=== PATIENT | female | born 1965 | race Caucasian/White ===

== ENCOUNTER 2019-02-14 07:38 | Day surgery (SDC) | payer OTHER, SELFPAY ==
[2019-02-14] VITALS (7 sets, daily range): BP systolic 88–118; BP diastolic 44–75; PULSE 53–60; RESP 10–16; TEMP 36–36.7; O2SAT 97–100; BMI 19.9
[2019-02-14] MEDS: SODIUM CHLORIDE 0.9% 1,000 ML 200 ML IV (08:18)
[2019-02-14] MEDS: FLEETS ENEMA 1 EACH PR (08:36)
--- NOTE | 2019-02-14 08:36 | SUR.PREOP ---
Enema given as instructed.
--- NOTE | 2019-02-14 08:42 | SUR.PREOP ---
output after enema was yellow and slightly cloudy.
--- NOTE | 2019-02-14 09:02 | SUR.PREOP ---
AnneRN and Dr. Palmer aware of output after enema.
--- NOTE | 2019-02-14 09:03 | P.HP_ITS ---
History of Present Illness History of Present Illness Date Patient Seen: 02/14/19 Time Patient Seen: 09:03 Chief complaint: [id number] SCREENING COLONOSCOPY Narrative: Patient presents for colorectal screening. They have never had any previous examination for such. No personal or family history of colon cancer. On further history denies any recent gastrointestinal symptoms. No nausea, vomiting, abdominal pain, loss of appetite, unexplained weight loss, change in b owel habits, diarrhea, constipation, melena, hematochezia, or bright red blood per rectum. Patient History Family & Social History Social History: household members spouse Meds Home Medications and Allergies Home Medications Medication Instructions Recorded Confirmed Type ascorbic acid (vitamin C) [Vitamin 1,000 mg PO DAILY 02/14/19 02/14/19 History C] magnesium 400 mg PO DAILY 02/14/19 02/14/19 History multivitamin 1 tab PO DAILY 02/14/19 02/14/19 History omega 4-qiw-[id number]-fish oil [Fish Oil] 1 cap PO DAILY 02/14/19 02/14/19 History Allergies Allergy/AdvReac Type Severity Reaction Status Date / Time No Known Drug Allergies Allergy Verified 02/14/19 08:01 Review of Systems Review of Systems Narrative: A complete review of systems is negative except as noted in the HPI Exam Vital Signs (past 8 hours): - 02/14/19 08:06 Temperature 97.6 F Pulse Rate 60 Respiratory Rate 15 Blood Pressure 118/75 Pulse Oximetry 100 Oxygen Delivery Method Room Air Narrative Exam Narrative: General-no acute distress, well nourished HEENT-moist mucous membranes, no scleral icterus Neck-supple, no lymphadenopathy Chest- non labored respirations, clear to auscultation bilaterally Cardiac-regular rate no peripheral edema Abdomen-soft, nontender, non distended Extremities-warm, well perfused Neurological-alert and oriented, no focal deficits Assessment & Plan Assessment and plan (1) Screening for colon cancer: Current visit: Yes Status: Acute Assessment & Plan narrative: The patient requires colorectal screening and colonoscopy is recommended. Technical details were discussed. Risks, benefits, alternatives explained. Risks including but not limited to myocardial infarction, aspiration, bleeding, pain, missed lesion, incomplete examination, need for further radiographic studies, colonic perforation, and need for major abdominal surgery were discussed. All questions were answered to their satisfaction, and they are in agreement with this plan.
[2019-02-14] MEDS: fentaNYL 250 MCG/5 ML INJ IV (09:36)
[2019-02-14] MEDS: MIDAZOLAM 5 MG/5 ML VIAL IV (09:37)
--- NOTE | 2019-02-14 09:37 | PM.OP.ENDO ---
Operative Date/Time/Diagnoses Date of procedure: 02/14/19 Time of procedure: 09:37 Pre-op diagnosis: screening colonoscopy Post-op diagnosis: same Procedure & Clinicians Study performed: Colonoscopy Same procedure as scheduled: Yes Indications: 53-year-old female presents for routine screening colonoscopy Surgeon: Rajesh Palmer Procedure Notes SCOAP/Timeout: Performed Procedure in detail: Patient placed in left lateral decubitus position. Time out was performed. Procedural sedation was administered with Versed and Fentanyl. A rectal exam demonstrated no external hemorrhoids no internal masses. Colonoscopy scope was placed into the rectum and advanced through the colon to the cecum. The ileocecal valve was identified. The scope was then slowly withdrawn examining colon thoroughly in all directions. The colonoscopy was notable for the following 1. No masses or polyps 2. Quality of prep excellent 3. Grade 1-2 internal hemorrhoids Scope withdrawal time: 6 Sedation minutes: 22 Findings: internal hemorrhoids Specimen(s): none sent Complications: none Impression: Normal colonoscopy Post-procedure Recommendations: Colonscopy in 10 years Disposition: same day surgery
== END 2019-02-14 10:23 | disposition home or self-care (01) ==
PROVIDERS: PCP Internal Medicine; Visit Provider Surgery
PROC: 0DJD8ZZ Inspection of Lower Intestinal Tract, Via Natural or Artificial Opening Endoscopic (ICD-10-PCS; CPT 45378; principal; 2019-02-14 09:00)
DX: Z12.11 Encounter for screening for malignant neoplasm of colon (principal); K64.0 First degree hemorrhoids
CPT/HCPCS: 45378; 99152; J2250; J3010

== ENCOUNTER → 2020-05-26 07:55 | Outpatient (CLI) | payer OTHER, SELFPAY ==
[2020-05-26 09:16] LABS: Add Manual Diff / Slide Review NO; Basophils Absolute Auto 100 /uL (0-100); Basophils Percent Auto 1.8 % (0-2); Eosinophils Absolute Auto 300 /uL (0-450); Eosinophils Percent Auto 8.1 % (2-4); Hematocrit 39.2 % (36-46); Hemoglobin 13.6 g/dL (12.0-16.0); Lymphocytes Absolute Auto 1700 /uL (1100-4500); Lymphocytes Percent Auto 39.4 % (25-40); Mean Corpuscular HGB Conc 34.8 % (30-36); Mean Corpuscular Hemoglobin 32.7 PG (26-34); Mean Corpuscular Volume 93.8 fL (80-100); Monocytes Absolute Auto 500 /uL (0-900); Monocytes Percent Auto 11.7 % (3-14); Neutrophils Absolute Auto 1700 /uL (1500-7000); Platelet Count 209 X10^3/uL (150-400); Red Blood Cell Count 4.18 X10^6/uL (4.0-5.2); Red Cell Distribution Width 12.3 % (11.6-14.8); White Blood Cell Count 4.3 X10^3/uL (4.5-11.0)
[2020-05-26 09:41] LABS: Alanine Aminotransferase 26 IU/L (<35); Albumin 4.3 g/dL (3.5-5.0); Albumin Globulin Ratio 1.8 (1.0-2.8); Alkaline Phosphatase 63 U/L (38-126); Aspartate Aminotransferase 34 IU/L (14-36); BUN Creatinine Ratio 23.1 (6-22); Bilirubin Total 0.3 mg/dL (0.2-1.3); Blood Urea Nitrogen 18 mg/dL (7-17); Calcium 9.4 mg/dL (8.4-10.2); Carbon Dioxide 27 mmol/L (22-32); Chloride 106 mmol/L (98-107); Cholesterol 223 mg/dL (140-199); Estimated Glomerular Filt Rate > 60.0 mL/min (>60); Globulin 2.4 g/dL (1.7-4.1); Glucose 83 mg/dL (70-100); HDL Cholesterol 72 mg/dL (40-60); HEMOLYSIS < 15 (0-50); LDL Cholesterol Calculated 132 mg/dL (<100); Potassium 4.6 mmol/L (3.4-5.1); Sodium 137 mmol/L (137-145); Total Protein 6.7 g/dL (6.3-8.2); Triglycerides 94 mg/dL (35-150)
[2020-05-26 10:14] LABS: TSH w/ Reflex to FT4 1.43 uIU/mL (0.47-4.68)
== END ==
PROVIDERS: PCP Internal Medicine; Referring Provider Internal Medicine; Visit Provider Internal Medicine
DX: Z00.01 Encounter for general adult medical examination with abnormal findings (principal); G43.109 Migraine with aura, not intractable, without status migrainosus; F33.0 Major depressive disorder, recurrent, mild
CPT/HCPCS: 36415; 80053; 80061; 84443; 85025

== ENCOUNTER 2023-09-15 08:15 | Outpatient (RCR) | payer OTHER, SELFPAY ==
--- NOTE | 2023-09-08 17:47 | PT.OIE ---
Current Diagnoses Stiffness of unspecified hip, not elsewhere classified (09/08/23) Muscle weakness (generalized) (09/08/23) Stress incontinence (female) (male) (09/08/23) Unspecified dyspareunia (09/08/23) Menopausal and female climacteric states (09/08/23) Visit Care Team Role Provider Type Sebas Muniz MD Family Provider Physician Primary Care Provider Specialty: Internal Medicine Address: [address] [place] [address], [address] Email: [email or web address] Attending Provider Advanced Fly Worker Referring Provider Specialty: Nursing Address: Cardiology [address], [address] Email: Physical Therapy Initial Evaluation PT-OP-A Visit Information Start: 09/04/23 07:42 Freq: Status: Active Protocol: Document 09/08/23 11:20 LRN (Rec: 09/08/23 12:16 LRN [id number]) Out-Patient Physical Therapy Visit Information Visit Information Visit Type Initial Evaluation Visit Start Time 11:20 Visit Stop Time 12:13 Visit Number 1 Evaluation Information Evaluation Date 09/08/23 Precautions Precautions Neuropathy PT-OP-B Current Condition Start: 09/04/23 07:42 Freq: Status: Active Protocol: Document 09/08/23 11:20 LRN (Rec: 09/08/23 12:16 LRN [id number]) Current Condition History of Current Condition Onset Date 1 yr ago. Current Complaints Pain during intercourse. History of Current Condition Pain with sexual intercourse starting 1 yr ago. Recently noticed bladder issue, urinary leakage with couging, sneezing. Sometimes after going to bathroom she feels the need to urinate. Has estrogen creme and has been started on hormones. Pt notes she no longer feels scratching in her vaginal canal with taking of hormones. Prior Treatments and Tests None Treatment Goals Patient/Caregiver Goals Pt goal is to: decrease pain with intercourse . eliminate urinary leakage. 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 Starts work 10/26/23 that she describes as busy. Parents recent passing: dad 01/30/24, mom 09/2020 (pt noting she was very close to mom). No children. Very active. PT-OP-C Subjective Start: 09/04/23 07:42 Freq: Status: Active Protocol: Document 09/08/23 11:20 LRN (Rec: 09/08/23 12:16 LRN [id number]) Patient Questionnaires Pelvic Pain and Urgency/Frequency Patient Symptom Scale Pelvic Pain Score 15 PT-OP-I Pelvic Floor Start: 09/04/23 07:42 Freq: Status: Active Protocol: Document 09/08/23 11:20 LRN (Rec: 09/08/23 12:16 LRN [id number]) Pelvic Floor Assessment Urine Urinary Symptoms Urge Sensation,Hesitancy, Dribbling After Urination, Incomplete Emptying Leakage Size Small Leakage Cause Cough,Sneeze Other Leakage Causes Once has leaked a lot, wetting underwear. Voiding Frequency 15 Nocturia 2-3 Pads Used In 24 Hours 0 Bowel Bowel Symptoms Constipation Bowel Movement Frequency once a week [place] Stool Chart Comments BM types 1-5 Pelvic Clock Pelvic Clock 12-3 Tightness Pelvic Clock 3-6 Tightness Pelvic Clock 6-9 Tenderness,Tightness Pelvic Clock 9-12 Tightness Prolapse Cystocele Grade 2 Perineal Descent Resting Present Bearing Present Contraction Ability Manual Muscle Testing Left 1 Manual Muscle Testing Right 1 Manual Muscle Testing Anterior 1 Manual Muscle Testing Posterior 3 Muscle Endurance (Seconds) 3 Number of Quick Contractions In 10 5 Seconds Comments Pelvic Floor Comments Very weak contractions and poor lettting go. PT-OP-J Posture/Palpation/Skin Start: 09/04/23 07:42 Freq: Status: Active Protocol: Document 09/08/23 11:20 LRN (Rec: 09/08/23 12:16 LRN [id number]) Posture Evaluation Position Standing Head/C-Spine Posture Forward Head T-Spine Posture Neutral L-Spine Posture Neutral Shoulder Posture (L) Elevated Pelvis Posture Anteriorly Tilted Weight Distribution Balanced PT-OP-K Range of Motion Start: 09/04/23 07:42 Freq: Status: Active Protocol: Document 09/08/23 11:20 LRN (Rec: 09/08/23 12:16 LRN [id number]) Lumbar Spine Range of Motion Lumbar Spine Active Degrees Testing Position Standing Flexion 90 Extension 15 Rotation Left 40 Rotation Right 40 Lateral Flexion Left 10 Lateral Flexion Right 10 Hip Goniometric Range of Motion Hip Right Passive Testing Position Supine Abduction 45 Internal Rotation 25 External Rotation 50 Left Passive Testing Position Supine Abduction 30 Internal Rotation 35 External Rotation 55 PT-OP-M Strength Start: 09/04/23 07:42 Freq: Status: Active Protocol: Document 09/08/23 11:20 LRN (Rec: 09/08/23 12:16 LRN [id number]) Hip Strength Hip Manual Muscle Testing Right Comments All Hip strength is 5/5. Left Comments All Hip strength is 5/5. PT-OP-Q Treatments Start: 09/04/23 07:42 Freq: Status: Active Protocol: Document 09/08/23 11:20 LRN (Rec: 09/08/23 12:16 LRN [id number]) Therapeutic Exercises Sitting Exercises Urge deference training Reps/Minutes 3' Comments Pt cued through process, but appeared to struggle with performing Self-Care/Home Management Treatment Education Other Education Discussed results of evaluation, goals, treatment, and plan of care (POC) with pt , discussed attendance/cx/dns policy; pt agreeable to evaluationi, goals, treatment, attendance/cx/dns policy and POC. policy; pt agreeable to goals, attendance/cx/dns policy and POC. Discussed results of evaluation, goals, treatment, and plan of care (POC) with pt , discussed attendance/cx/dns policy; pt agreeable to evaluationi, goals, treatment, attendance/cx/dns policy and POC. Discussed and educated pt in specifics for completion of in use of Bladder Diary and I/S in tracking for 1 week. Briefly discussed use of 2 different diaries for tracking of bladder for next 7 days. Educated pt briefly in [place] Stool Chart for bladder diary notation. Discussed/education in Diaphragmatic breathing for pt to practice. Activities Self-Care/Home Management Activities Issued handouts for Diaphragmatic breathing and Adell stool chart, bladder diary. PT-OP-T Assessment and Plan Start: 09/04/23 07:42 Freq: Status: Active Protocol: Document 09/08/23 11:20 LRN (Rec: 09/08/23 12:16 LRN [id number]) Physical Therapy Assessment Rehab Potential Rehabilitation Potential Good Evaluation Complexity Number of Personal Factors/Comorbidities 1-2 Number of Body Systems Impaired 4 or More Clinical Presentation at Evaluation Evolving Impairments Impairments Activity Tolerance,Pain,ROM, Soft Tissue Mobility,Strength, Transfers Goals Four Impairment Increased frequency of urination Impairment Urinates 10x/day and 2-3x/ night Short Term Goal (STG) Pt will be educated in urge deference technique to help manage frequency of urination to 8x/day and 2x/night STG Duration 10 wks-11/20/23 Breastfeeding Educator Goal (LTG) Pt will be able decrease urination to no more than 5x/ day and 1-2x/night. LTG Duration 16 wks-12/29/23 Three Impairment Urinary stress incontinence with cough or sneeze. Short Term Goal (STG) Pt educated in proper transfers to lessen core abdominal pressure, and fluid management with pt STG Duration 4 wks-10/06/23 Chcf Goal (LTG) Improve PF strength with pt able to elimate urinary leakage with cough or sneeze. LTG Duration 16 wks-12/29/23 Two Impairment PF pain with sexual intercourse Short Term Goal (STG) Pt will be able to perform proper deep breathing prior to sexual intercourse to decrease pelvic pain. STG Duration 4 wks-10/06/23 Chcf Goal (LTG) Improve pt's ability to relax her PF after contraction (6-8 quick flicks in 10 secs) to eliminate PF ms pain with sexual intercourse. LTG Duration 16 wks-12/29/23 One Impairment Pt lacks an independent self care HEP. Short Term Goal (STG) Pt will be educated in vulvar/ genital care to improve health of PF tissues and reduce irritation with sexual intercourse. STG Duration 4 wks-10/06/23 Breastfeeding Educator Goal (LTG) Pt will be independent in a self care HEP for PF strengthening/stretching, hip mobility, and core strengthening exercises for management of her PF pain. LTG Duration 16 wks-12/29/23 Assessment Summary Assessment Pt is a 58 yo female who presents with diagnosis of dysparenia, c/o stress urinary incontinence (AUNDREA), increased frequency of urination day/ night and constipation, presentation of decreased hip/ trunk mobility and strength. Her pain description with intercourse is consistent with poor tissue health and PF tightness. She does present with PF tenderness mainly at 8 -10 of the PF clock. Pt has dry external tissues, small vaginal opening and appears to have a cystocele that does not protrude out of hymen in supine. The pt is very tense and finds it difficult to relax or contract her PF, probably due to tightness. I suspect her condition is greatly attributed to her fluid management, hormonal changes, and social changes she has recently experienced. The pt will benefit from skilled phyiscal therapy to achieve the above stated goals . Physical Therapy Plan Frequency and Duration Frequency of Treatment 1x/Week Duration of treatment (weeks) 16 Plan of Care Start Date 09/08/23 Plan of Care End Date 12/29/23 Therapeutic Interventions Therapeutic Interventions Home Exercise Program,Joint Mobilizations,Manual Therapy, Neuromuscular Re-education, Self-Care/Home Management,Soft Tissue Mobilization, Therapeutic Activities, Therapeutic Exercises Modalities Biofeedback,Electric Stimulation Next Visit Focus/Plan Next Note Type Treatment Note Next Visit Plan Focus on self care/HEP. Check neuropathy. Next: Review bladder diary, pt education in bladder retraining with urge deference technique, proper Kegel without use of substitute muscles & reverse kegel with proper breathing/transfers and body mechanics, reduction of intra-abdominal pressure, proper deep breathing. Ther Ex: PF/core/hip strengthening, improve hip IR and trunk mobility. Educate/discuss stool types, foods, water intake, educate & discuss Bowel massage, proper sit to stand, and moving in bed using breathwork and core/ PF stabilization for proper abdominal pressure system. PLAN: POC: Pt education, Manual therapy. Biofeedback with vaginal sensor. Therapeutic Exercises, Therapeutic Activities, Neuromuscular Reeducation.
--- NOTE | 2023-09-15 17:23 | PT.OTN ---
Current Diagnoses Stiffness of unspecified hip, not elsewhere classified (09/15/23) Muscle weakness (generalized) (09/15/23) Stress incontinence (female) (male) (09/15/23) Unspecified dyspareunia (09/15/23) Menopausal and female climacteric states (09/15/23) Physical Therapy Treatment Note PT-OP-A Visit Information Start: 09/04/23 07:42 Freq: Status: Active Protocol: Document 09/15/23 08:18 LRN (Rec: 09/15/23 09:05 LRN [id number]) Out-Patient Physical Therapy Visit Information Visit Information Visit Type Treatment Note Visit Start Time 08:19 Visit Stop Time 09:01 Visit Number 2 Evaluation Information Evaluation Date 09/08/23 Precautions Precautions Neuropathy PT-OP-B Current Condition Start: 09/04/23 07:42 Freq: Status: Active Protocol: Document 09/08/23 11:20 LRN (Rec: 09/08/23 12:16 LRN [id number]) Current Condition History of Current Condition Onset Date 1 yr ago. Current Complaints Pain during intercourse. History of Current Condition Pain with sexual intercourse starting 1 yr ago. Recently noticed bladder issue, urinary leakage with couging, sneezing. Sometimes after going to bathroom she feels the need to urinate. Has estrogen creme and has been started on hormones. Pt notes she no longer feels scratching in her vaginal canal with taking of hormones. Prior Treatments and Tests None Treatment Goals Patient/Caregiver Goals Pt goal is to: decrease pain with intercourse . eliminate urinary leakage. 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 Starts work 10/26/23 that she describes as busy. Parents recent passing: dad 01/30/24, mom 09/2020 (pt noting she was very close to mom). No children. Very active. PT-OP-C Subjective Start: 09/04/23 07:42 Freq: Status: Active Protocol: Document 09/15/23 08:18 LRN (Rec: 09/15/23 09:05 LRN [id number]) OP-PT Subjective Patient Comments Patient Comments Pt emotionally labile. Feels there is a lot going on. Notes intercourse was a little better after being on estrogen patch, but still painful. Patient Reported Progress Same PT-OP-I Pelvic Floor Start: 09/04/23 07:42 Freq: Status: Active Protocol: Document 09/08/23 11:20 LRN (Rec: 09/08/23 12:16 LRN [id number]) Pelvic Floor Assessment Urine Urinary Symptoms Urge Sensation,Hesitancy, Dribbling After Urination, Incomplete Emptying Leakage Size Small Leakage Cause Cough,Sneeze Other Leakage Causes Once has leaked a lot, wetting underwear. Voiding Frequency 15 Nocturia 2-3 Pads Used In 24 Hours 0 Bowel Bowel Symptoms Constipation Bowel Movement Frequency once a week [place] Stool Chart Comments BM types 1-5 Pelvic Clock Pelvic Clock 12-3 Tightness Pelvic Clock 3-6 Tightness Pelvic Clock 6-9 Tenderness,Tightness Pelvic Clock 9-12 Tightness Prolapse Cystocele Grade 2 Perineal Descent Resting Present Bearing Present Contraction Ability Manual Muscle Testing Left 1 Manual Muscle Testing Right 1 Manual Muscle Testing Anterior 1 Manual Muscle Testing Posterior 3 Muscle Endurance (Seconds) 3 Number of Quick Contractions In 10 5 Seconds Comments Pelvic Floor Comments Very weak contractions and poor lettting go. PT-OP-J Posture/Palpation/Skin Start: 09/04/23 07:42 Freq: Status: Active Protocol: Document 09/08/23 11:20 LRN (Rec: 09/08/23 12:16 LRN [id number]) Posture Evaluation Position Standing Head/C-Spine Posture Forward Head T-Spine Posture Neutral L-Spine Posture Neutral Shoulder Posture (L) Elevated Pelvis Posture Anteriorly Tilted Weight Distribution Balanced PT-OP-K Range of Motion Start: 09/04/23 07:42 Freq: Status: Active Protocol: Document 09/08/23 11:20 LRN (Rec: 09/08/23 12:16 LRN [id number]) Lumbar Spine Range of Motion Lumbar Spine Active Degrees Testing Position Standing Flexion 90 Extension 15 Rotation Left 40 Rotation Right 40 Lateral Flexion Left 10 Lateral Flexion Right 10 Hip Goniometric Range of Motion Hip Right Passive Testing Position Supine Abduction 45 Internal Rotation 25 External Rotation 50 Left Passive Testing Position Supine Abduction 30 Internal Rotation 35 External Rotation 55 PT-OP-M Strength Start: 09/04/23 07:42 Freq: Status: Active Protocol: Document 09/08/23 11:20 LRN (Rec: 09/08/23 12:16 LRN [id number]) Hip Strength Hip Manual Muscle Testing Right Comments All Hip strength is 5/5. Left Comments All Hip strength is 5/5. PT-OP-Q Treatments Start: 09/04/23 07:42 Freq: Status: Active Protocol: Document 09/15/23 08:18 LRN (Rec: 09/15/23 09:05 LRN [id number]) Therapeutic Exercises Supine Exercises Deep Breathing Supine Exercise Name hand on upper chest and diaphragm region Reps/Minutes 11' Comments Extra time for I/S & cued to breath in thru nose, out thru lips Manual Therapy Treatment Soft Tissue Mobilization Bowel massage Body Location Abdominal region. Mobilization Type Other Intensity/Depth superficial to mod Body Position Supine Self-Care/Home Management Treatment Education Other Education Reviewed Bladder dairy and discussed fluid intake (AM/PM) , bowel movement frequency, & nighttime voiding frequency. Discussed vulvar care of PF health and recommended pt talk to MD regarding use of estrogen creme for external PF tissues and recommended with intercourse to use lubricant. Activities Self-Care/Home Management Activities Issued handout for Diaphragmatic Breathing for 6 sec breaths. Handout issued for Bowel massage PT-OP-T Assessment and Plan Start: 09/04/23 07:42 Freq: Status: Active Protocol: Document 09/15/23 08:18 LRN (Rec: 09/15/23 09:05 LRN [id number]) Physical Therapy Assessment Goals Four Impairment Increased frequency of urination Impairment Urinates 10x/day and 2-3x/ night Short Term Goal (STG) Pt will be educated in urge deference technique to help manage frequency of urination to 8x/day and 2x/night STG Duration 10 wks-11/20/23 Wet Wash Assembler Goal (LTG) Pt will be able decrease urination to no more than 5x/ day and 1-2x/night. LTG Duration 16 wks-12/29/23 Three Impairment Urinary stress incontinence with cough or sneeze. Short Term Goal (STG) Pt educated in proper transfers to lessen core abdominal pressure, and fluid management. 09/15/23: Pt educated in best practice for fluid hydration of 1/2 body wgt in ounces. STG Duration 4 wks-10/06/23 progressed 05/09 Correction Goal (LTG) Improve PF strength with pt able to elimate urinary leakage with cough or sneeze. LTG Duration 16 wks-12/29/23 Two Impairment PF pain with sexual intercourse Short Term Goal (STG) Pt will be able to perform proper deep breathing prior to sexual intercourse to decrease pelvic pain. STG Duration 4 wks-10/06/23 Wet Wash Assembler Goal (LTG) Improve pt's ability to relax her PF after contraction (6-8 quick flicks in 10 secs) to eliminate PF ms pain with sexual intercourse. LTG Duration 16 wks-12/29/23 One Impairment Pt lacks an independent self care HEP. Short Term Goal (STG) Pt will be educated in vulvar/ genital care to improve health of PF tissues and reduce irritation with sexual intercourse. 09/15/23: Less pain with use of estrogen patch STG Duration 4 wks-10/06/23 progressing 09/15/23 Wet Wash Assembler Goal (LTG) Pt will be independent in a self care HEP for PF strengthening/stretching, hip mobility, and core strengthening exercises for management of her PF pain. LTG Duration 16 wks-12/29/23 Assessment Summary Assessment 58 yo w/dysparenia probably due to poor tissue health (and dry external tissues), PF tightness, PF clock tenderness mainly at 8-10, AUNDREA, increased frequency of urination day/night and constipation, decreased hip/ trunk mobility and strength. Pt has small vaginal opening and possible grade 1 cystocele . Today pt appears tense, breaths were shallow and fast with open mouth when asked to breath slowly, improved with training, and she noted the benefit of deep breathing after training. Pt was emotionally labile over stress of her body not working like she is used to it working. After discussion of her PF and bladder diary review, pt became more relaxed and was able to understand and participate well with bowel massage training. Per her 2 day bladder diary review, pt appears to be drinking plenty of fluids for one day, has poor fiber content through the day and shows no BM in the 2 days she completed the diary. More fiber is needed through her day to improve her BM times during the week. Physical Therapy Plan Frequency and Duration Frequency of Treatment 1x/Week Duration of treatment (weeks) 16 Plan of Care Start Date 09/08/23 Plan of Care End Date 12/29/23 Next Visit Focus/Plan Next Note Type Treatment Note Next Visit Plan Focus on self care/HEP. Check neuropathy. Next: Assess deep breathing correctly and response to bowel massage. Pt education in vulvar/genital care, bladder retraining with urge deference technique, proper Kegel without use of substitute muscles & reverse kegel with proper breathing/ transfers and body mechanics, reduction of intra-abdominal pressure, proper deep breathing. Ther Ex: PF/core/hip strengthening, improve hip IR and trunk mobility. Educate/discuss stool types, foods, water intake, educate & discuss Bowel massage, proper sit to stand, and moving in bed using breathwork and core/ PF stabilization for proper abdominal pressure system. PLAN: POC: Pt education, Manual therapy. Biofeedback with vaginal sensor. Therapeutic Exercises, Therapeutic Activities, Neuromuscular Reeducation.
--- NOTE | 2024-03-14 17:36 | PT.OPDS ---
Current Diagnoses Stiffness of unspecified hip, not elsewhere classified (09/15/23) Muscle weakness (generalized) (09/15/23) Stress incontinence (female) (male) (09/15/23) Unspecified dyspareunia (09/15/23) Menopausal and female climacteric states (09/15/23) Visit Care Team Role Provider Type Sebas Muniz MD Family Provider Physician Primary Care Provider Specialty: Internal Medicine Address: [address] [place] [address], [id number] Email: [email or web address] Desai Attending Provider Advanced Gaggerman Referring Provider Specialty: Nursing Address: Cardiology [address], [address] Email: Visit Number Visit Number 2 Discharge Summary PT-OP-B Current Condition Start: 09/04/23 07:42 Freq: Status: Active Protocol: Document 09/08/23 11:20 LRN (Rec: 09/08/23 12:16 LRN [id number]) Current Condition History of Current Condition Onset Date 1 yr ago. Current Complaints Pain during intercourse. History of Current Condition Pain with sexual intercourse starting 1 yr ago. Recently noticed bladder issue, urinary leakage with couging, sneezing. Sometimes after going to bathroom she feels the need to urinate. Has estrogen creme and has been started on hormones. Pt notes she no longer feels scratching in her vaginal canal with taking of hormones. Prior Treatments and Tests None Treatment Goals Patient/Caregiver Goals Pt goal is to: decrease pain with intercourse . eliminate urinary leakage. 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 Starts work 10/26/23 that she describes as busy. Parents recent passing: dad 01/30/24, mom 09/2020 (pt noting she was very close to mom). No children. Very active. PT-OP-C Subjective Start: 09/04/23 07:42 Freq: Status: Active Protocol: Document 09/15/23 08:18 LRN (Rec: 09/15/23 09:05 LRN [id number]) OP-PT Subjective Patient Comments Patient Comments Pt emotionally labile. Feels there is a lot going on. Notes intercourse was a little better after being on estrogen patch, but still painful. Patient Reported Progress Same PT-OP-I Pelvic Floor Start: 09/04/23 07:42 Freq: Status: Active Protocol: Document 09/08/23 11:20 LRN (Rec: 09/08/23 12:16 LRN [id number]) Pelvic Floor Assessment Urine Urinary Symptoms Urge Sensation,Hesitancy, Dribbling After Urination, Incomplete Emptying Leakage Size Small Leakage Cause Cough,Sneeze Other Leakage Causes Once has leaked a lot, wetting underwear. Voiding Frequency 15 Nocturia 2-3 Pads Used In 24 Hours 0 Bowel Bowel Symptoms Constipation Bowel Movement Frequency once a week [place] Stool Chart Comments BM types 1-5 Pelvic Clock Pelvic Clock 12-3 Tightness Pelvic Clock 3-6 Tightness Pelvic Clock 6-9 Tenderness,Tightness Pelvic Clock 9-12 Tightness Prolapse Cystocele Grade 2 Perineal Descent Resting Present Bearing Present Contraction Ability Manual Muscle Testing Left 1 Manual Muscle Testing Right 1 Manual Muscle Testing Anterior 1 Manual Muscle Testing Posterior 3 Muscle Endurance (Seconds) 3 Number of Quick Contractions In 10 5 Seconds Comments Pelvic Floor Comments Very weak contractions and poor lettting go. PT-OP-J Posture/Palpation/Skin Start: 09/04/23 07:42 Freq: Status: Active Protocol: Document 09/08/23 11:20 LRN (Rec: 09/08/23 12:16 LRN [id number]) Posture Evaluation Position Standing Head/C-Spine Posture Forward Head T-Spine Posture Neutral L-Spine Posture Neutral Shoulder Posture (L) Elevated Pelvis Posture Anteriorly Tilted Weight Distribution Balanced PT-OP-K Range of Motion Start: 09/04/23 07:42 Freq: Status: Active Protocol: Document 09/08/23 11:20 LRN (Rec: 09/08/23 12:16 LRN [id number]) Lumbar Spine Range of Motion Lumbar Spine Active Degrees Testing Position Standing Flexion 90 Extension 15 Rotation Left 40 Rotation Right 40 Lateral Flexion Left 10 Lateral Flexion Right 10 Hip Goniometric Range of Motion Hip Right Passive Testing Position Supine Abduction 45 Internal Rotation 25 External Rotation 50 Left Passive Testing Position Supine Abduction 30 Internal Rotation 35 External Rotation 55 PT-OP-M Strength Start: 09/04/23 07:42 Freq: Status: Active Protocol: Document 09/08/23 11:20 LRN (Rec: 09/08/23 12:16 LRN [id number]) Hip Strength Hip Manual Muscle Testing Right Comments All Hip strength is 5/5. Left Comments All Hip strength is 5/5. PT-OP-T Assessment and Plan Start: 09/04/23 07:42 Freq: Status: Active Protocol: Document 03/14/24 17:26 LRN (Rec: 03/14/24 17:35 LRN [id number]) Physical Therapy Assessment Goals Four Impairment Increased frequency of urination Impairment Urinates 10x/day and 2-3x/ night Short Term Goal (STG) Pt will be educated in urge deference technique to help manage frequency of urination to 8x/day and 2x/night STG Duration Goal not met. Half-Way Goal (LTG) Pt will be able decrease urination to no more than 5x/ day and 1-2x/night. LTG Duration Goal not met. Three Impairment Urinary stress incontinence with cough or sneeze. Short Term Goal (STG) Pt educated in proper transfers to lessen core abdominal pressure, and fluid management. 09/15/23: Pt educated in best practice for fluid hydration of 1/2 body wgt in ounces. STG Duration Goal not met. progressed Half-Way Goal (LTG) Improve PF strength with pt able to elimate urinary leakage with cough or sneeze. LTG Duration Goal not met Two Impairment PF pain with sexual intercourse Short Term Goal (STG) Pt will be able to perform proper deep breathing prior to sexual intercourse to decrease pelvic pain. STG Duration Goal not met Nurse Practitioner Adult Goal (LTG) Improve pt's ability to relax her PF after contraction (6-8 quick flicks in 10 secs) to eliminate PF ms pain with sexual intercourse. LTG Duration Goal not met One Impairment Pt lacks an independent self care HEP. Short Term Goal (STG) Pt will be educated in vulvar/ genital care to improve health of PF tissues and reduce irritation with sexual intercourse. 09/15/23: Less pain with use of estrogen patch STG Duration Goal not met. progressing Half-Way Goal (LTG) Pt will be independent in a self care HEP for PF strengthening/stretching, hip mobility, and core strengthening exercises for management of her PF pain. LTG Duration Goal not met Assessment Summary Assessment Pt is a 58 yo w/dysparenia, AUNDREA, increased frequency of urination day/night and constipation, and decreased hip/trunk mobility and strength. The pt was seen for her initial evaluation and one treatment visit on 09/15/23. She cancelled her last two scheduled visits and did not reschedule. The pt is now past her plan of care date; therefore she would need a new referral to return to physical therapy. The pt is being discharged due to lack of attendance. Physical Therapy Plan Discharge Physical Therapy Discharge Reasons No Longer Attending PT Discharge Comments Thank you for your referral.
== END 2024-03-24 10:30 | disposition home or self-care (01) ==
LOC: PHYS 08:15
PROVIDERS: Family Provider Internal Medicine; PCP Internal Medicine; Referring Provider Nurse Practitioner; Visit Provider Nurse Practitioner
DX: N94.10 Unspecified dyspareunia (principal); N95.1 Menopausal and female climacteric states; N39.3 Stress incontinence (female) (male); M25.659 Stiffness of unspecified hip, not elsewhere classified; M62.81 Muscle weakness (generalized)
CPT/HCPCS: 97110; 97140; 97162; 97535